=== PATIENT | female | born 1975 | race Caucasian/White ===

== ENCOUNTER → 2017-02-24 | Outpatient (CLI) | payer MEDICAID ==
--- NOTE | 2017-02-28 08:43 | RADIOLOGY REPORT PS360 ---
US BREAST-LT COMPLETE W/AXILLA COMPARISON: None INDICATION: Left breast tenderness, patient with implants ORDERING PHYSICIAN: CHARLA VALENTIN APRN PATIENT AGE: 41 years TECHNIQUE: Standard ultrasound of the breast FINDINGS: There are 2 hypoechoic lesions at 1:00 each measuring 4 mm and may be due to small cyst. Small nodes present in the axilla. Colonic areas from the breast implant are noted. IMPRESSION: Probable small left breast cysts. No suspicious nodules evident. Implant in place. BI-RADS CATEGORY: 0_Incomplete: Need additional imaging RECOMMENDED FOLLOWUP: No suspicious abnormalities are evident on the ultrasound however, workup is incomplete without mammography. Negative ultrasound does not exclude the possibility of malignancy. Alternatively, MRI of the breast with dedicated breast unit without and with contrast may provide further evaluation of the breast parenchyma and the implant itself. (A letter has been sent to the patient regarding results of the study.)
--- NOTE | 2017-02-28 08:44 | RADIOLOGY REPORT PS360 ---
US BREAST-RT COMPLETE W/AXILLA COMPARISON: There are no previous exams available for comparison INDICATION: Tenderness, breast implants ORDERING PHYSICIAN: CHARLA VALENTIN APRN PATIENT AGE: 41 years TECHNIQUE: Standard right breast ultrasound FINDINGS: 4 mm cyst at 12:00 with some minimal internal septations 5 mm cyst at 10:00 3 mm hypoechoic area at 1:00 and may be due to small complex cyst with some slight increased echogenicity 9 x 8 mm cyst at 9:00 with some internal septations. 4 mm hypoechoic area at 10:00 may be due to small cyst. 6 x 6 mm complex cyst at 11:00. Small right axillary lymph node. No suspicious nodules apparent Implant in place IMPRESSION: Negative right breast ultrasound. BI-RADS CATEGORY: 0_Incomplete: Need additional imaging RECOMMENDED FOLLOWUP: Ultrasound does not demonstrate any suspicious nodules however, evaluation is incomplete without mammography. Alternatively, MRI of the breast may be performed with dedicated breast coil to better evaluate the breast parenchyma and the implant itself. A negative ultrasound does not exclude possibility of malignancy. (A letter has been sent to the patient regarding results of the study.)
== END ==
LOC: RAD 13:20
DX: N64.4 Mastodynia (principal)